=== PATIENT | female | born 1975 | race American Indian/Alaskan Native ===

== ENCOUNTER 2020-01-31 22:12 | Emergency (ER) | payer MEDICAID ==
[2020-01-31 23:33] VITALS: BP 90/46; PULSE 86
--- NOTE | 2020-02-01 00:14 | EDM.PDOC ---
ED HPI GENERAL MEDICAL PROBLEM - General Chief Complaint: Lower Extremity Injury/Pain Stated Complaint: left knee pain Time Seen by Provider: 01/31/20 23:35 Source of Information: Reports: Patient History Limitations: Reports: No Limitations - History of Present Illness INITIAL COMMENTS - FREE TEXT/NARRATIVE: ED with c/o pain to left knee, has not tried anything for pain, states feel like going to give out. Denies injury, has some chronic pain , more walking due to [place] and [place], feel like grinding. also notice d some read are to lower leg, comes and goes. No fever or chills. Left Knee Pain Score (Numeric/FACES): 6 - Related Data Allergies Allergy/AdvReac Type Severity Reaction Status Date / Time codeine Allergy Hives Verified 02/26/16 14:51 Home Meds: Home Meds DULoxetine HCl [Cymbalta] 1 tab PO DAILY 02/08/16 [History] Ferrous Sulfate 1 tab PO BID 02/08/16 [History] Past Medical History - Past Health History Medical/Surgical History: Denies Medical/Surgical History Cardiovascular History: Reports: Other (See Below) Other Cardiovascular History: states she has had occasional bilateral leg swelling off and on "for a while"; has not been given any medications by PCP for this. Respiratory History: Reports: COPD Psychiatric History: Reports: Anxiety, Depression Hematologic History: Reports: Anemia - Infectious Disease History Infectious Disease History: Reports: Chicken Pox, MRSA - Past Surgical History GI Surgical History: Reports: Cholecystectomy Female Surgical History: Reports: Section, Hysterectomy Social & Family History - Family History Family Medical History: Noncontributory - Tobacco Use Smoking Status *Q: Never Smoker Second Hand Smoke Exposure: No - Caffeine Use Caffeine Use: Reports: Soda - Recreational Drug Use Recreational Drug Use: No Review of Systems - Review of Systems Review Of Systems: Comprehensive ROS is negative, except as noted in HPI. ED EXAM, GENERAL - Physical Exam Exam: See Below Exam Limited By: No Limitations General Appearance: Alert, Mild Distress Eye Exam: Bilateral Eye: EOMI Ears: Normal External Exam Nose: Normal Inspection Throat/Mouth: Normal Inspection Head: Atraumatic, Normocephalic Neck: Normal Inspection Respiratory/Chest: No Respiratory Distress Cardiovascular: Normal Peripheral Pulses, Regular Rate, Rhythm Extremities: Normal Range of Motion, Other (mild crepitus left knee. no laxity. no gross swelling to knee. no redness. ). No: Joint Swelling Neurological: Alert, Oriented Psychiatric: Normal Affect Skin Exam: Warm, Dry, Intact, Wound/Incision (old superficial abrasion mid lower palacios, mild erythema, no cellulitis no drainage. trace swelling bilateral lower extremities. ) Course - Vital Signs Last Recorded V/S: Last Vital Signs Temp 97.9 F 01/31/20 23:28 Pulse 86 01/31/20 23:28 Resp 18 01/31/20 23:28 BP 90/46 L 01/31/20 23:28 Pulse Ox 97 01/31/20 23:28 Departure - Departure Time of Disposition: 00:09 Disposition: Home, Self-Care 01 Condition: Good Clinical Impression: Edema leg Left knee pain Qualifiers: Chronicity: acute Qualified Code(s): M25.562 - Pain in left knee - Discharge Information *PRESCRIPTION DRUG MONITORING PROGRAM REVIEWED*: No *COPY OF PRESCRIPTION DRUG MONITORING REPORT IN PATIENT GÉNESIS: No Instructions: Joint Pain Forms: ED Department Discharge Additional Instructions: rest knee clinic follow up shun wrap to knee use cane or walker for stability and balance alternate tylenol 650mg and ibuprofen 600mg every 6 hours as needed for discomfort Sepsis Event Note - Evaluation Sepsis Screening Result: No Definite Risk - Focused Exam Vital Signs: Vital Signs Temp Pulse Resp BP Pulse Ox 01/31/20 23:28 97.9 F 86 18 90/46 L 97 Date Exam was Performed: 02/01/20 Time Exam was Performed: 04:21
== END 2020-02-01 00:17 | disposition home or self-care (01) ==
LOC: DL.ED 22:12
DX: M25.562 Pain in left knee (principal); R60.0 Localized edema; F41.9 Anxiety disorder, unspecified; F32.9 Major depressive disorder, single episode, unspecified; Z88.5 Allergy status to narcotic agent; Z79.899 Other long term (current) drug therapy
CPT/HCPCS: 99283

== ENCOUNTER 2021-03-27 22:57 | Emergency (ER) | payer MEDICAID ==
[2021-03-27 23:09] VITALS: BP 120/52; PULSE 95
[2021-03-27] MEDS ORDERED: Doxycycline Monohydrate 100 MG Cap PO ONE (23:16)
--- NOTE | 2021-03-27 23:22 | EDM.PDOC ---
ED HPI GENERAL MEDICAL PROBLEM - General Chief Complaint: Bite:Animal, Insect Stated Complaint: BEHIND RIGHT KNEE, TIC Time Seen by Provider: 03/27/21 23:10 Source of Information: Reports: Patient History Limitations: Reports: No Limitations - History of Present Illness INITIAL COMMENTS - FREE TEXT/NARRATIVE: tick bite behind right knee, pulled tick off and felt bump in area after. Recent cellulitis to lower legs, Not diabetic. No fever or chills. - Related Data Allergies Allergy/AdvReac Type Severity Reaction Status Date / Time codeine Allergy Hives Verified 03/27/21 23:09 Home Meds: Home Meds DULoxetine HCl [Cymbalta] 1 tab PO DAILY 02/08/16 [History] Ferrous Sulfate 1 tab PO BID 02/08/16 [History] Past Medical History - Past Health History Medical/Surgical History: Denies Medical/Surgical History Cardiovascular History: Reports: Other (See Below) Other Cardiovascular History: states she has had occasional bilateral leg swelling off and on "for a while"; has not been given any medications by PCP for this. Respiratory History: Reports: COPD Psychiatric History: Reports: Anxiety, Depression Hematologic History: Reports: Anemia - Infectious Disease History Infectious Disease History: Reports: Chicken Pox, MRSA - Past Surgical History GI Surgical History: Reports: Cholecystectomy Female Surgical History: Reports: Section, Hysterectomy Social & Family History - Family History Family Medical History: No Pertinent Family History - Tobacco Use Tobacco Use Status *Q: Never Tobacco User Second Hand Smoke Exposure: No - Caffeine Use Caffeine Use: Reports: Coffee - Recreational Drug Use Recreational Drug Use: No ED ROS GENERAL - Review of Systems Review Of Systems: Comprehensive ROS is negative, except as noted in HPI. ED EXAM, ANIMAL BITE - Physical Exam Exam: See Below Exam Limited By: No Limitations General Appearance: Alert, No Apparent Distress Ears: Normal External Exam Nose: Normal Inspection Throat/Mouth: Normal Inspection Head: Atraumatic, Normocephalic Neck: Normal Inspection Respiratory/Chest: No Respiratory Distress, Lungs Clear Cardiovascular: Normal Peripheral Pulses, Regular Rate, Rhythm Extremities: Normal Inspection Neurological: Alert, Oriented Skin Exam: Other (blood filled blister at site of [id number] papule, non tender, no surrounding redness. nontender.) Course - Vital Signs Last Recorded V/S: Last Vital Signs Temp 97.6 F 03/27/21 23:08 Pulse 95 03/27/21 23:08 Resp 18 03/27/21 23:08 BP 120/52 L 03/27/21 23:08 Pulse Ox 98 03/27/21 23:08 - Orders/Labs/Meds Meds: Medications Discontinued Medications Generic Name Dose Route Start Last Admin Trade Name Jose PRN Reason Stop Dose Admin Doxycycline Monohydrate 100 mg 03/27/21 23:16 03/27/21 23:27 Doxycycline Monohydrate 100 Mg Cap PO 03/27/21 23:17 100 mg ONETIME ONE Administration Departure - Departure Time of Disposition: 23:20 Disposition: Home, Self-Care 01 Condition: Good Clinical Impression: Tick bite Qualifiers: Encounter type: initial encounter Site of tick bite: lower leg Laterality: right Qualified Code(s): S80.861A - Insect bite (nonvenomous), right lower leg, initial encounter - Discharge Information *PRESCRIPTION DRUG MONITORING PROGRAM REVIEWED*: No *COPY OF PRESCRIPTION DRUG MONITORING REPORT IN PATIENT GÉNESIS: No Instructions: Tick Bite Information, Adult, [id number] Referrals: PCP,None [Primary Care Provider] - Forms: ED Department Discharge Additional Instructions: keep area clean monitor for infection, follow up if redness , swelling or fever doxycycline 100mg one twice daily for 10 days Sepsis Event Note (ED) - Evaluation Sepsis Screening Result: No Definite Risk - Focused Exam Vital Signs: Vital Signs Temp Pulse Resp BP Pulse Ox 03/27/21 23:08 97.6 F 95 18 120/52 L 98
== END 2021-03-27 23:29 | disposition home or self-care (01) ==
LOC: DL.ED 22:57
DX: S80.861A Insect bite (nonvenomous), right lower leg, initial encounter (principal); J44.9 Chronic obstructive pulmonary disease, unspecified; D64.9 Anemia, unspecified; Z88.5 Allergy status to narcotic agent; Z79.899 Other long term (current) drug therapy; W57.XXXA Bitten or stung by nonvenomous insect and other nonvenomous arthropods, initial encounter
CPT/HCPCS: 99281; 99283; A9270